=== PATIENT | female | born 1975 | race Caucasian/White ===

== ENCOUNTER 2016-06-15 23:45 | Emergency (ER) | payer OTHER ==
[2016-06-16 01:12] LABS: URINE BILIRUBIN NEGATIVE (NEGATIVE); URINE BLOOD 3+ (NEGATIVE); URINE GLUCOSE (UA) NORMAL (NORMAL); URINE KETONE 1+ (NEGATIVE); URINE LEUKOCYTE ESTERASE 1+ (NEGATIVE); URINE NITRATE NEGATIVE (NEGATIVE); URINE PROTEIN 1+ (NEGATIVE)
[2016-06-16 01:19] LABS: URINE BACTERIA TRACE (NONE SEEN); URINE RBC TNTC /[HPF] (0-2); URINE SQUAMOUS EPITHELIAL CELL 0-10 /[HPF] (NONE SEEN)
== END 2016-06-16 01:45 ==
LOC: ER 23:45
PROVIDERS: General Practice
DX: N39.0 Urinary tract infection, site not specified (principal); N20.0 Calculus of kidney; R10.9 Unspecified abdominal pain; R31.9 Hematuria, unspecified; F17.210 Nicotine dependence, cigarettes, uncomplicated; N83.201 Unspecified ovarian cyst, right side
CPT/HCPCS: 74150; 81001; 87086; 96372; 99070; 99284-25

== ENCOUNTER 2016-07-06 16:07 | Emergency (ER) | payer OTHER ==
[2016-07-06 17:24] LABS: PH,URINE 6.5 (5.0 - 9.0); URINE BILIRUBIN NEGATIVE (NEGATIVE); URINE BLOOD 3+ (NEGATIVE); URINE GLUCOSE (UA) NORMAL (NORMAL); URINE KETONE TRACE (NEGATIVE); URINE LEUKOCYTE ESTERASE 1+ (NEGATIVE); URINE NITRATE POSITIVE (NEGATIVE); URINE PROTEIN 1+ (NEGATIVE)
[2016-07-06 17:42] LABS: URINE BACTERIA 1+ (NONE SEEN); URINE CALCIUM OXALATE CRYSTALS 0-2 /[HPF] (NONE SEEN); URINE RBC TNTC /[HPF] (0-2); URINE SQUAMOUS EPITHELIAL CELL 15-20 /[HPF] (NONE SEEN)
== END 2016-07-06 18:05 | disposition home or self-care (01) ==
LOC: ER 16:07
PROVIDERS: General Practice
DX: N20.0 Calculus of kidney (principal); N39.0 Urinary tract infection, site not specified; R10.9 Unspecified abdominal pain; F17.210 Nicotine dependence, cigarettes, uncomplicated
CPT/HCPCS: 81001; 96372; 99070; 99284-25

== ENCOUNTER 2016-07-23 16:03 | Emergency (ER) | payer OTHER ==
[2016-07-23 17:11] LABS: URINE BILIRUBIN NEGATIVE (NEGATIVE); URINE BLOOD 3+ (NEGATIVE); URINE GLUCOSE (UA) NORMAL (NORMAL); URINE KETONE 1+ (NEGATIVE); URINE LEUKOCYTE ESTERASE 2+ (NEGATIVE); URINE NITRATE POSITIVE (NEGATIVE); URINE PROTEIN 2+ (NEGATIVE)
[2016-07-23 17:44] LABS: URINE BACTERIA 1+ (NONE SEEN); URINE RBC TNTC /[HPF] (0-2); URINE SQUAMOUS EPITHELIAL CELL >20 /[HPF] (NONE SEEN); URINE WBC TNTC /[HPF] (0-5)
== END 2016-07-23 18:30 | disposition home or self-care (01) ==
LOC: ER 16:03
PROVIDERS: Emergency Medicine
DX: N30.90 Cystitis, unspecified without hematuria (principal); R10.30 Lower abdominal pain, unspecified; F17.210 Nicotine dependence, cigarettes, uncomplicated; Z90.710 Acquired absence of both cervix and uterus
CPT/HCPCS: 81001; 99070; 99283